=== PATIENT | male | born 1955 | race Caucasian/White ===

== ENCOUNTER → 2020-10-24 | Outpatient (CLI) | payer OTHER ==
--- NOTE | 2020-10-24 11:24 | KCIC ---
EXAM: Right knee, 3 views. HISTORY: Stiffness and pain. COMPARISON: None. FINDINGS: 3 views of the right knee are obtained. There is no fracture, dislocation or subluxation. T here is mild patellofemoral compartment spurring. There is trace joint fluid. No significant joint ef fusion is seen. IMPRESSION: Mild right knee osteoarthritis. No acute osseous finding. Electronically signed by: Swapna Auguste MD (10/24/2020 11:22 AM) [id number]
== END ==
LOC: KCIC 10:55
PROVIDERS: ATTEND Family Medicine
DX: M17.11 Unilateral primary osteoarthritis, right knee (principal)
CPT/HCPCS: 73562